=== PATIENT | male | born 1965 | race Caucasian/White ===

== ENCOUNTER 2019-03-20 05:34 | Observation (INO) | payer OTHER ==
[~2019-03-20] VITALS: Ht 185.4 cm; Wt 129.3 kg
[2019-03-20 05:38] VITALS: BP 161/73
[2019-03-20 06:07] LABS: ABSOLUTE BASOPHILS 0.1 thou/uL (0.0-0.2); ABSOLUTE EOSINOPHILS 0.1 thou/uL (0.0-0.7); ABSOLUTE LYMPHOCYTES 1.3 thou/uL (0.8-5.3); ABSOLUTE MONOCYTES 0.5 thou/uL (0.0-1.2); ABSOLUTE NEUTROPHILS 3.4 thou/uL (1.6-8.1); BASOPHILS 1.3 %; EOSINOPHILS 1.3 %; HEMOGLOBIN 14.3 gm/dL (14.0-18.0); LYMPHOCYTES 24.6 %; MCH 29.7 pg (26.0-34.0); MCV 87.4 fL (80.0-100.0); MPV 9.1 fl. (7.2-11.1); NUCLEATED RBCS 0 /100WBC; PLATELET COUNT* 117 thou/uL (150-400); POLYS 62.8 %; RDW-CV 14.9 % (10.5-14.5); WBC 5.4 thou/uL (4.0-11.0)
[2019-03-20 06:20] LABS: ANION GAP 9 mmol/L (7-16); BUN 16 mg/dL (7-18); CALCIUM 8.9 mg/dL (8.5-10.1); CHLORIDE 102 mmol/L (98-107); CO2 25 mmol/L (21-32); CREATININE 1.2 mg/dL (0.6-1.3); GLUCOSE 249 mg/dL (70-99); POTASSIUM 4.5 mmol/L (3.5-5.1); SODIUM 136 mmol/L (136-145)
[2019-03-20 06:22] LABS: PROTIME 10.5 Seconds (9.20-11.50)
[2019-03-20 06:31] LABS: ALBUMIN 3.5 g/dL (3.4-5.0); ALKALINE PHOSPHATASE 87 U/L (46-116); LIPASE 218 U/L (73-393); NT-PRO BRAIN NAT PEPTIDE 84 pg/mL (<300); SGOT 26 U/L (15-37); SGPT 104 U/L (30-65); TOTAL BILIRUBIN 0.3 mg/dL (<0.1-1.0); TOTAL PROTEIN 7.2 g/dL (6.4-8.2); TROPONIN-I LEVEL <0.06 ng/mL (<0.06)
[2019-03-20 08:59] VITALS: BP 136/87
[2019-03-20 09:37] VITALS: BP 133/89
--- NOTE | 2019-03-20 09:54 | NUR ---
RECEIVED REPORT FROM ANNIE RN IN ER OF EXPECTED ADMISSION AT 0900- DX: CHEST PAIN- PT ARRIVED TO ROOM 233 VIA CART AT 0910, SBA TO BED- SUPERVISORY AIDE PLACED ORDERED, TRACING SR- VS 97.5 18 133/89 79 95% ON 2L- PT A&O X4-CONTINENT OF B/B- UP AD-NAUN STEADY GAIT NOTED- DIMINISHED LUNG SOUNDS NOTED, RESP EVEN AND UN-LABORED- ABD SOFT/ROUND/NON-TENDER, BS X4 QUADS- LAST BM REPORTED THIS AM- IV NOTED TO RIGHT AC INTACT AND SL- PT NOTED TO UPPER AND LOWER DENTURES- SKIN C/D/I, NOTED TATOOS- DENIES ANY C/O PAIN/DISCOMFORT AT THIS TIME OF ADMISSION- NITRO PASTE NOTED TO LEFT CHEST REMOVED UPON ADMISSION, R/T PLANNED STRESS TEST- PT TO BE NPO AT MIDNIGHT- TROPS NOTED NEGATIVE X2 AT THIS TIME- CALL LIGHT AND PERSONAL BELONGINGS WITH IN REACH- PT MAKES NEEDS KNOWN- ALL NEEDS MET AT THIS TIME-WCTM
[2019-03-20 11:37] VITALS: BP 141/92
[2019-03-20 12:57] LABS: CHOLESTEROL 105 mg/dL (<200); HDL CHOLESTEROL 45 mg/dL (>40); LDL CHOLESTEROL 35 mg/dL (<100); SERUM ASSESSMENT Clear; TC:HDL 2.3 Ratio (Not establshd); TRIGLYCERIDE 127 mg/dL (<150); VLDL 25 mg/dL (<40)
[2019-03-20 14:09] VITALS: BP 141/92
[2019-03-20] MEDS ORDERED: METFORMIN HCL500 MG PO (15:12)
[2019-03-20] MEDS ORDERED: PROTONIX40 M1 PO (15:13)
[2019-03-20 16:01] VITALS: BP 141/83
--- NOTE | 2019-03-20 16:01 | EXE ---
[place] [address] STRESS ECHOCARDIOGRAM Name: ALANA ROBLERO Room: [address] IN [facility]#: [id number] Admission: 03/20/19 Attend Phys: Srevando Prasad, Discharge: Date of : 69 Date of Service: 03/20/19 [facility] Report #: [id number] THIS REPORT FOR: //name// APPROVED REPORT Study performed: 03/20/2019 13:01:40 Exam: Stress Echocardiogram Indication: Chest pain Patient Location: In-Patient Stress Nurse: Irina Sena RN Room #: [facility] Supervising Physician: Rom Mayes MD Ht: 6 ft 0 in HR: 68 bpm BP: 134/85 mmHg Medical History Cardiac Risk Factors: FHX of CAD, DM, Tobacco History (Former) Procedure The patient underwent an Exercise Stress Test using the David Protocol. Blood pressure, heart rate, and EKG were monitored. An Echocardiogram was performed by auto repair technician in four stages in quad fashion. At peak stress, four selected images were obtained and placed side by side with resting images for comparison. Stress Test Details Stress Test: Exercise stress testing was performed using a David protocol. HR Resting HR: 68 bpm Max Heart Rate (APMHR): 168 bpm Max HR Achieved: 146 bpm Target HR (85% APMHR): 142 bpm % of APMHR: 86 Recovery HR: 93 bpm HR response to stress: Normal HR response to stress BP Resting BP: 134/85 mmHg Max BP: 198/98 mmHg Recovery BP: 154/89 mmHg BP response to stress: Normal blood pressure response to stress. ECG [address] [address] STRESS ECHOCARDIOGRAM Name: ALANA ROBLERO Zainab Room: [address] IN [facility]#: [id number] Admission: 03/20/19 Attend Phys: Servando Prasad, Discharge: Date of : 69 Date of Service: 03/20/19 1600 Report #: [id number] Resting ECG: Sinus Rhythm, nonspecific ST-T abnormalities Stress ECG: Sinus Tachycardia ST Change: None Arrhythmia: None Recovery ECG: Sinus Rhythm, nonspecific ST-T abnormalities Recovery ST Change: None Recovery Arrhythmia: None Clinical Reason for Termination: Completed protocol Exercise duration: 7 min sec Highest Stage Achieved: Stage 3: 3.4 mph at 14% grade. Exercise capacity: 8.57 METs The patient tolerated standard David protocol exercise without significant cardiac symptoms. Stress ECG Conclusion The baseline 12-lead EKG shows sinus rhythm with nonspecific ST segment depression and T-wave inversion diffusely. EKGs obtained during and post exercise showed sinus rhythm and sinus tachycardia with no significant ST or Baseline. There were no stress-induced arrhythmias. Pre-Stress Echo The resting Echocardiogram showed normal left ventricular contractility with an estimated Ejection Fraction of about 55-60%. Normal wall motion in all segments on baseline images. Post-Stress Echo The stress Echocardiogram showed normal left ventricular contractility with an estimated Ejection Fraction of about >70%. Normal augmentation of wall motion in all segments on post stress images. Conclusion Clinical Response: Non-ischemic Exercise Capacity: Below Average Stress ECG Response: Indeterminant Stress Echo Images: Non-ischemic Echocardiographic images at baseline show normal wall motion with no evidence of wall motion abnormality. Post exercise stress echo images show normal augmentation of left ventricular systolic function with no evidence of stress-[place] [address] STRESS ECHOCARDIOGRAM Name: ALANA ROBLERO Room: [address] IN [facility]#: [id number] Admission: 03/20/19 Attend Phys: Servando Prasad, Discharge: Date of : 69 Date of Service: 03/20/19 1600 Report #: [id number] The electric cardiographic portion of the stress test is nondiagnostic due to abnormal ST-T wave morphology on baseline EKG. Based on echocardiographic response this is not a high risk study. Other Information Study Quality: Fair <Conclusion> Echocardiographic images at baseline show normal wall motion with no evidence of wall motion abnormality. Post exercise stress echo images show normal augmentation of left ventricular systolic function with no evidence of stress-induced wall motion abnormality. The electric cardiographic portion of the stress test is nondiagnostic due to abnormal ST-T wave morphology on baseline EKG. Based on echocardiographic response this is not a high risk study. <ELECTRONICALLY SIGNED> By: Rom Mayes MD, FACC 03/20/191599 99 99 Rom Mayes MD, FACC /INF
--- NOTE | 2019-03-20 17:22 | EKG ---
[place] [address] ELECTROCARDIOGRAM REPORT Name: ALANA ROBLERO Room: [place] [address] ADM IN [facility]#: [id number] Admission: 03/20/19 Attend Phys: Servando Prasad MD Discharge: Date of : 69 Report #: [id number] THIS REPORT FOR: //name// [facility] ED Test Date: 2019-03-20 Test Time: 05:41:23 Pat Name: ALANA ROBLERO Department: Room: [facility] Gender: M Shipyard Helper: : [id number] Requested By: Saundra Mccall Order Number: [id number] MD: Rom Mayes Measurements Intervals [place] Rate: 71 P: 54 MI: 153 QRS: 32 QRSD: 92 T: 175 QT: 392 QTc: 426 Interpretive Statements Sinus rhythm Probable left atrial enlargement Abnrm T, consider ischemia, anterolateral lds Compared to ECG 10/06/2015 13:42:23 Possible ischemia now present T-wave abnormality no longer present Electronically Signed On 03-20-2019 17:21:56 CDT by Rom Mayes [email or web address] <ELECTRONICALLY SIGNED> By: Rom Mayes MD, FACC 03/20/19 1721 0541 0541 Rom Mayes MD, [facility] /EPI
--- NOTE | 2019-03-20 17:34 | NUR ---
STRESS ECHO ORDERED AND COMPLETED THIS SHIFT- RESULTED NORMAL WITH NO ABNORMS NOTED- RESULTS CALLED TO FIDEL SHANNON, AMISHA RECEIVED FOR OKAY TO D/C PER CARDIOLOGY- D/C ORDERS NOTED PER -IV TO RIGHT AC D/C'D ALONG WITH PARTS INTERPRETER PRIOR TO D/C- D/C EDUCATION/TEACHING/NEEDED FOLLOW UP'S COMMUNICATED WITH VERBAL UNDERSTANDING NOTED-WRITTEN EDUCATION AND SCRIPTS PROVIDED TO PT AT TIME OF D/C- ALL QUESTIONS AND CONCERNS ADDRESSED PRIOR TO D/C- SCRIPT FOR GLUCOMETER/LANCETS/STRIPS CALLED IN TO PHARMACY PRIOR TO D/C- NEED BLOOD SUGAR MONITORING EDUCATION GIVEN- BELONGINGS PACKED AND ACCOUNTED FOR PER PT- PT ESCORTED VIA AMBULATION TO VEHICLE; AT SIDE AT 1735- NO PROBLEMS TO NOTE AT TIME OF D/C
== END 2019-03-20 17:35 | disposition home or self-care (01) ==
LOC: M.ERS 05:34 → M.2W 08:10 → M.TBA-ER 08:10 → M.2W 08:10
PROVIDERS: Emergency Medicine; Registered Nurse; ADMIT Internal Medicine
DX: I20.9 Angina pectoris, unspecified (principal); K21.9 Gastro-esophageal reflux disease without esophagitis; E11.65 Type 2 diabetes mellitus with hyperglycemia; E66.9 Obesity, unspecified; Z68.37 Body mass index [BMI] 37.0-37.9, adult; Z87.891 Personal history of nicotine dependence; Z79.899 Other long term (current) drug therapy